=== PATIENT | female | born 2000 | race Caucasian/White ===

== ENCOUNTER 2022-10-30 14:52 | Outpatient (CLI) | payer BC, SELFPAY ==
[2022-10-30 16:54] LABS: Albumin* 3.9 g/dL (3.3-5.0); Chloride* 101 mmol/L (96-114); Potassium* 3.8 mmol/L (3.6-5.1); Sodium* 136 mmol/L (135-149)
[2022-10-30 16:55] LABS: Lipase* 56 U/L (23-300)
[2022-10-30 16:56] LABS: Carbon Dioxide* 28 mmol/L (20-32); Creatinine* 0.5 mg/dL (0.5-1.5); Estimated Glomerular Filt Rate 136 ml/min
[2022-10-30 16:57] LABS: Alanine Aminotransferase* 90 U/L (4-35); Alkaline Phosphatase* 304 U/L (40-150); Aspartate Amino Transferase* 59 U/L (12-35); Blood Urea Nitrogen* 3 mg/dL (5-24); Calcium* 8.9 mg/dL (8.4-10.6); Glucose* 96 mg/dL (60-115); Total Protein* 7.6 g/dL (6.0-8.3)
== END 2022-10-30 14:53 | disposition home or self-care (01) ==
PROVIDERS: Visit Provider Nurse Practitioner Family
DX: R50.9 Fever, unspecified (principal)
CPT/HCPCS: 80053; 83690

== ENCOUNTER 2022-10-31 16:44 | Outpatient (CLI) | payer BC, SELFPAY ==
--- NOTE | 2022-10-31 17:00 | CRLHL7_ITS ---
For Patients: As a result of the Century Cures Act, medical imaging exams and procedure reports are released immediately into your electronic medical record. You may view this report before your referring provider. If you have questions, please contact your health care provider. INDICATION: Abdominal pain COMPARISON: none TECHNIQUE: Real time patton scale imaging and color Doppler analysis was performed of the right upper quadrant. FINDINGS: The patient`s liver is of normal size and has uniform echogenicity. There is a normal appearance of the hepatic IVC and proximal abdominal aorta. There is no evidence of ascites. The gallbladder is partially contracted and there is no evidence of intraluminal stones or sludge. The gallbladder wall measures 2 mm in thickness. The common bile duct is of normal size and measures 2 mm in diameter at the level of the isa hepatis. The pancreas appears normal. There is no evidence of a stone or hydronephrosis within the right kidney. The right kidney measures 10.6 cm in length. Mild isa hepatis adenopathy may be present. A small pericardial effusion is suggested. IMPRESSION: Partially contracted gallbladder without biliary obstruction. Consider HIDA scan. Mild isa hepatis adenopathy and small pericardial effusions suspected. Contrast-enhanced CT of the abdomen and pelvis suggested for further evaluation. Dictated by Juma Oliver MD @ 11/01/2022 12:10:22 PM (Electronically Signed)
== END 2022-10-31 16:45 | disposition home or self-care (01) ==
PROVIDERS: Visit Provider Nurse Practitioner Family
DX: R10.11 Right upper quadrant pain (principal)
CPT/HCPCS: 76705

== ENCOUNTER 2022-11-01 13:23 | Outpatient (CLI) | payer BC, SELFPAY ==
[2022-11-01 15:29] LABS: Albumin* 3.8 g/dL (3.3-5.0)
[2022-11-01 15:32] LABS: Bilirubin Direct* 3.3 mg/dL (0.0-0.5); Bilirubin Total* 3.9 mg/dL (0.1-1.5)
[2022-11-01 15:33] LABS: Alanine Aminotransferase* 149 U/L (4-35); Alkaline Phosphatase* 443 U/L (40-150); Aspartate Amino Transferase* 123 U/L (12-35); Total Protein* 7.6 g/dL (6.0-8.3)
== END 2022-11-01 13:24 | disposition home or self-care (01) ==
LOC: LONREF 13:24
PROVIDERS: Visit Provider Nurse Practitioner Family
DX: R10.11 Right upper quadrant pain (principal)
CPT/HCPCS: 80076

== ENCOUNTER 2022-11-01 16:46 | Emergency (ER) | payer BC, SELFPAY ==
--- NOTE | 2022-11-01 17:05 | ED.NURSE ---
signed refusal of services. dr alarcon did speak to her.
== END 2022-11-01 17:08 | disposition left against medical advice (07) ==
LOC: ED 17:07
PROVIDERS: Emergency Provider Family Medicine
DX: Z53.21 Procedure and treatment not carried out due to patient leaving prior to being seen by health care provider (principal)